=== PATIENT | male | born 1950 | race Caucasian/White ===

== ENCOUNTER 2019-11-13 08:14 | Emergency (ER) | payer OTHER ==
[~2019-11-13] VITALS: Ht 170.2 cm; Wt 81.6 kg
[2019-11-13] MEDS ORDERED: PEPCID AC20 MG (08:34)
[2019-11-13] MEDS ORDERED: PLAVIX75 MG (08:34)
[2019-11-13] MEDS ORDERED: TOPROL XL25 M1 (08:34)
[2019-11-13] MEDS ORDERED: LIPITOR20 MG (08:34)
[2019-11-13] MEDS ORDERED: ECOTRIN325 M1 (08:35)
== END 2019-11-13 11:20 | disposition home or self-care (01) ==
LOC: ER 08:14
DX: S43.014A Anterior dislocation of right humerus, initial encounter (principal); S00.33XA Contusion of nose, initial encounter; W10.8XXA Fall (on) (from) other stairs and steps, initial encounter; Y93.89 Activity, other specified; Y92.89 Other specified places as the place of occurrence of the external cause; Y99.8 Other external cause status

== ENCOUNTER 2019-11-17 08:12 | Emergency (ER) | payer OTHER ==
[~2019-11-17] VITALS: Ht 157.5 cm; Wt 81.6 kg
[~2019-11-17 08:12] MED LIST: ECOTRIN325 M1; LIPITOR20 MG; PEPCID AC20 MG; PLAVIX75 MG; TOPROL XL25 M1
== END 2019-11-17 11:37 | disposition home or self-care (01) ==
LOC: ER 08:12
DX: M24.411 Recurrent dislocation, right shoulder (principal)